=== PATIENT | female | born 1955 | race Caucasian/White ===

== ENCOUNTER 2019-06-11 13:59 | Emergency (ER) | payer OTHER ==
[~2019-06-11] VITALS: Ht 160 cm; Wt 136.1 kg
[2019-06-11] MEDS ORDERED: PRADAXA150 MG PO (14:14)
[2019-06-11] MEDS ORDERED: DILTIAZEM ER120 MG PO (14:14)
[2019-06-11] MEDS ORDERED: TOPROL XL25 MG PO (14:15)
[2019-06-11] MEDS ORDERED: LISINOPRIL2.5 MG PO (14:15)
[2019-06-11] MEDS ORDERED: LASIX 40 MG TAB40 MG PO (14:38)
[2019-06-11] MEDS ORDERED: K-DUR 20 MEQ T20 MEQ PO (14:38)
[2019-06-11] MEDS ORDERED: KEFLEX500 M2 PO (14:38)
[2019-06-11 15:03] VITALS: BP 177/107
== END 2019-06-11 15:05 | disposition home or self-care (01) ==
LOC: M.ERS 13:59
DX: L03.115 Cellulitis of right lower limb (principal); L03.116 Cellulitis of left lower limb; R60.0 Localized edema; I10 Essential (primary) hypertension; I48.91 Unspecified atrial fibrillation; Z96.653 Presence of artificial knee joint, bilateral; Z98.890 Other specified postprocedural states; Z88.5 Allergy status to narcotic agent

== ENCOUNTER 2019-06-22 16:01 | Inpatient (IN) | payer MEDICARE ==
[~2019-06-22] VITALS: Ht 160 cm; Wt 142.9 kg
--- NOTE | ~2019-06-22 | EKG ---
[place] [address] ELECTROCARDIOGRAM REPORT Name: RISSA PRINGLE Room: [facility]#: [id number] Admission: 06/22/19 Attend Phys: Discharge: Date of : 53 Date of Service: 06/22/191616 Report #: [id number] THIS REPORT FOR: cc: Lucero Marte Linda J. DO Epiphany, Epiphany MD ~ THIS REPORT FOR: //name// [facility] ED Test Date: 2019-06-22 Test Time: 16:17:17 Pat Name: RISSA PRINGLE Department: Room: Gender: F Plasma Processor: OPAL : 1955 Requested By: Aquiles Cobian Order Number: [id number] MD: Measurements Intervals [place] Rate: 99 P: AR: QRS: -21 QRSD: 102 T: 10 QT: 384 QTc: 493 Interpretive Statements Atrial fibrillation Borderline left axis deviation Low voltage, precordial leads Borderline prolonged QT interval Baseline wander in lead(s) V5 No previous ECG available for comparison [email or web address] By: 16 16 Epiphany Epiphany, /CARLOS MANUEL
--- NOTE | ~2019-06-22 | EKG ---
[place] [address] ELECTROCARDIOGRAM REPORT Name: RISSA PRINGLE Room: [address] ADM IN [facility].#: [id number] Admission: 06/22/19 Attend Phys: Mason Quiles Discharge: Date of : 53 Date of Service: 06/24/19 1501 Report #: [id number] THIS REPORT FOR: cc: Lucero Marte Linda J. DO Epiphany, Epiphany MD ~ THIS REPORT FOR: //name// [facility] Test Date: 2019-06-24 Test Time: 15:01:12 Pat Name: RISSA PRINGLE Department: Room: [address] Gender: F Warehouse Receiver: UNKNOWN : 1955 Requested By: Mason Zhang Order Number: [id number] Reading MD: Measurements Intervals [place] Rate: 146 P: AL: QRS: -14 QRSD: 84 T: 28 QT: 296 QTc: 462 Interpretive Statements Incomplete analysis due to missing data in precordial lead(s) Atrial fibrillation Probable anteroseptal infarct, old Missing lead(s): V5 Compared to ECG 06/22/2019 16:17:17 Myocardial infarct finding now present Poor R-wave progression no longer present [email or web address] By: 150 150 Epiphany MD Reyna /CARLOS MANUEL
[~2019-06-22 16:01] MED LIST: DILTIAZEM ER120 MG PO; K-DUR 20 MEQ T20 MEQ PO; KEFLEX500 M2 PO; LASIX 40 MG TAB40 MG PO; LISINOPRIL2.5 MG PO; PRADAXA150 MG PO; TOPROL XL25 MG PO
[2019-06-22 16:08] VITALS: BP 188/101
[2019-06-22 17:04] LABS: ABSOLUTE BASOPHILS 0.1 thou/uL (0.0-0.2); ABSOLUTE EOSINOPHILS 0.3 thou/uL (0.0-0.7); ABSOLUTE LYMPHOCYTES 2.1 thou/uL (0.8-5.3); ABSOLUTE MONOCYTES 0.9 thou/uL (0.0-1.2); ABSOLUTE NEUTROPHILS 9.2 thou/uL (1.6-8.1); EOSINOPHILS 2.2 %; HEMATOCRIT 42.5 % (37.0-47.0); LYMPHOCYTES 16.8 %; MCH 28.6 pg (26.0-34.0); MCHC 32.8 g/dL (28.0-37.0); MCV 87.1 fL (80.0-100.0); MONOCYTES 7.1 %; MPV 9.3 fl. (7.2-11.1); NUCLEATED RBCS 0 /100WBC; PLATELET COUNT* 245 thou/uL (150-400); POLYS 72.9 %; RBC 4.88 mil/uL (4.20-5.00); RDW-CV 15.4 % (10.5-14.5); WBC 12.6 thou/uL (4.0-11.0)
[2019-06-22 17:08] LABS: CALCIUM 8.9 mg/dL (8.5-10.1); CREATININE 0.9 mg/dL (0.6-1.3)
[2019-06-22 17:12] LABS: POTASSIUM 2.8 mmol/L (3.5-5.1)
[2019-06-22 17:18] LABS: APTT 36.3 Seconds (25.0-31.3); INR 1.2
[2019-06-22 17:19] LABS: ALBUMIN 3.4 g/dL (3.4-5.0); TOTAL BILIRUBIN 0.7 mg/dL (<0.1-1.0); TOTAL PROTEIN 7.7 g/dL (6.4-8.2)
--- NOTE | 2019-06-22 18:25 | NUR ---
PT WAS EXERTED AFTER UP TO BR WITH ASSIST X 1 WITH BSC, PT PLACED TO BED, O2 MONITOR 87% RA, PLACED PT ON NC/2L O2 AND SPO2 WENT UP TO 97%. DURING POTASSIUM 20MEQ IVPB INFUSION, PT C/O BURNING, NS 100ML BAG HUNG ALONG WITH POTASSIUM WITH PUMP SETTING AT 25ML/HR. DR. ENGLISH NOTIFIED AND RECEIVED NO NEW ORDERS AT THIS TIME. PT DENIES ANY NEEDS AT THIS TIME. CONTINUE TO MONITOR CLOSELY
[2019-06-22 19:13] LABS: CALCIUM 9.5 mg/dL (8.5-10.1); CREATININE 0.9 mg/dL (0.6-1.3); POTASSIUM 2.9 mmol/L (3.5-5.1)
[2019-06-22 20:49] VITALS: BP 166/79
--- NOTE | 2019-06-22 23:00 | NUR ---
RESULTS FROM CT RECEIVED, PHYSICIAN NOTIFIED. ORDERS RECEIVED.
[2019-06-23] VITALS (7 sets, daily range): BP systolic 107–193; BP diastolic 57–85
[2019-06-23 08:03] LABS: HEMATOCRIT 39.4 % (37.0-47.0); HEMOGLOBIN 12.9 gm/dL (12.0-15.0); MCH 28.3 pg (26.0-34.0); MCHC 32.7 g/dL (28.0-37.0); MCV 86.5 fL (80.0-100.0); MPV 8.9 fl. (7.2-11.1); RBC 4.56 mil/uL (4.20-5.00); RDW-CV 15.3 % (10.5-14.5); WBC 11.7 thou/uL (4.0-11.0)
[2019-06-23 08:23] LABS: CALCIUM 8.2 mg/dL (8.5-10.1); CREATININE 0.8 mg/dL (0.6-1.3)
[2019-06-23 08:25] LABS: POTASSIUM 2.9 mmol/L (3.5-5.1)
--- NOTE | 2019-06-23 11:04 | NUR ---
ASSUMED CARE OF PT AT 0730. PT RESTING IN BED, DAUGHTER AT BEDSIDE AND UPDATED ON CURRENT PLAN OF CARE. PT DENIES ANY PAIN OR SHORTNESS OF BREATH AT THIS TIME. PT TRACING AFIB ON THE WOODEN TANK ERECTOR. HEPARIN GTT CURRENTLY INFUSING AT 1,072 UNITS. REFER TO HEPARIN FLOW SHEET. CRITICAL POTASSIUM OF 2.9 NOTED FROM LAB- IV POTASSIUM INFUSING AT THIS TIME PER ELECTROLYTE PROTOCOL. PT ON 2L NC SAT 98%. PT UP WITH 1 ASSIST AND CANE TO BATHROOM. PT GOAL FOR TODAY IS PULM CONSULT IN PLACE, COMPLETE UPPER AND LOWER EXTREMITIES ULTRASOUNDS AND MONITOR PTT WITH HEPARIN GTT, REPLACE POTASSIUM PER ELECTROLYTE PROTOCOL. AM ASSESSMENT CHARTED. MEDICATIONS PER JUL. PT REPOSITIONS SELF. HOURLY ROUNDING OBSERVED. BED IN LOW POSITION. CALL LIGHT WITHIN REACH. WILL CONTINUE PLAN OF CARE.
--- NOTE | 2019-06-23 13:27 | 2DMMODE ---
[place] [address] 2 D/M-MODE ECHOCARDIOGRAM Name: RISSA PRINGLE Steven Room: [address] IN [facility].#: [id number] Admission: 06/22/19 Attend Phys: Mason Quiles Discharge: Date of : 53 Date of Service: 06/23/19 1326 Report #: [id number] THIS REPORT FOR: cc: Lucero Marte,Lucero Kirby,Trevon Douglass MD [facility] ~ THIS REPORT FOR: //name// APPROVED REPORT Study performed: 06/23/2019 10:55:57 EXAM: Comprehensive 2D, Doppler, and color-flow Echocardiogram Patient Location: In-Patient Room #: 222 Status: routine BSA: 2.34 HR: 95 bpm BP: 107/81 mmHg Rhythm: NSR Other Information Study Quality: Good Indications Congestive Heart Failure 2D Dimensions IVSd: 13.97 (7-11mm) LVOT Diam: 19.79 (18-24mm) LVDd: 47.81 mm PWd: 11.42 (7-11mm) Ascending Ao: 38.45 (22-36mm) LVDs: 32.97 (25-40mm) Aortic Root: 32.36 mm Volumes Left Atrial Volume (Systole) LA ESV Index: 44.60 mL/m2 Aortic Valve AoV Peak Ben.: 1.34 m/s AO Peak Gr.: 7.16 mmHg LVOT Max P.71 mmHg AO Mean Gr.: 4.32 mmHg LVOT Mean P.86 mmHg LVOT Max V: 0.96 m/s AO V2 VTI: 23.63 cm LVOT Mean V: 0.63 m/[place] [address] 2 D/M-MODE ECHOCARDIOGRAM Name: RISSA PRINGLE Room: [address] IN ..#: [id number] Admission: 06/22/19 Attend Phys: Mason Quiles Discharge: Date of : 53 Date of Service: 06/23/19 1326 Report #: [id number] DERRICK (VTI): 2.12 cm2 LVOT V1 VTI: 16.26 cm TDI Medial E' Ben.: 0.14 m/s Lateral E' Ben.: 0.14 m/s Pulmonary Valve PV Peak Ben.: 0.84 m/s PV Peak Gr.: 2.84 mmHg Tricuspid Valve RAP Estimate: 5.00 mmHg TR Peak Gr.: 22.49 mmHg RVSP: 27.00 mmHg PA Pressure: 27.00 mmHg Left Ventricle The left ventricle is normal size. There is normal LV segmental wall motion. Mild concentric left ventricular hypertrophy. Left ventricular systolic function is normal. The left ventricular ejection fraction is within the normal range. LVEF is 55-60%. This study is not technically sufficient to allow evaluation of the LV diastolic function due to atrial fibrillation. Right Ventricle Right ventricle is dilated. The right ventricular systolic function is normal. Atria Left atrium is moderately dilated. Right atrium is dilated. Aortic Valve The Aortic valve is sclerotic. No aortic regurgitation is present. There is no aortic valvular stenosis. Mitral Valve The mitral valve is normal in structure. Trace mitral regurgitation. No evidence of mitral valve stenosis. Tricuspid Valve The tricuspid valve is normal in structure. Mild tricuspid regurgitation. estimated pa pressure 35 mm Hg Pulmonic Valve Pulmonic valve is not well visualized. There is no pulmonic valvular regurgitation[place] [address] 2 D/M-MODE ECHOCARDIOGRAM Name: RISSA PRINGLE Room: [address]#: [id number] Admission: 06/22/19 Attend Phys: Maosn Quiles Discharge: Date of : 53 Date of Service: 06/23/19 1326 Report #: [id number] Aortic root is mildly dilated. IVC is normal in size and collapses >50% with inspiration. Pericardium There is no pericardial effusion. <Conclusion> Mild concentric left ventricular hypertrophy. LVEF is 55-60%. Left atrium is moderately dilated. The Aortic valve is sclerotic. <ELECTRONICALLY SIGNED> By: Trevon Nuno MD, FACC 06/23/19 1326 1326 1326 Trevon Nuno MD, FACC /INF
--- NOTE | 2019-06-23 14:21 | NUR ---
CM ASSESSMENT: PT LIVES AT HOME ALONE. PT IS INDEPENDENT WITH ADLS AND DOES NOT NEED ANY DME OR HH
--- NOTE | 2019-06-23 17:39 | NUR ---
NO ACUTE CHANGES THROUGHOUT SHIFT. REFER TO CHARTING. HEPARIN CURRENTLY INFUSING AT 787 UNITS/HR, REFER TO HEPARIN FLOW SHEET. RE DRAW PTT FOR 2315. 2ND BAG OF IV POTASSIUM INFUSING AT THIS TIME PER ELECTROLYTE PROTOCOL. PT HAD UPPER AND LOWER EXSTREMITIES ULTRASOUND TODAY-AWAITING RESULTS AT THIS TIME. PT HAD ECHO TODAY-REFER TO RESULTS. CONTINUES TO TRACE AFIB ON THE DEVELOPMENT ENGINEER. RATE CONTROLLED. ON 2L NC PRN FOR COMFORT-SAT UPPER 90'S. PT UP WITH 1 ASSIST AND CANE TO BATHROOM. WEAKNESS NOTED. DAUGHTER AT BEDSIDE THROUGHOUT SHIFT AND UPDATED ON CURRENT PLAN OF CARE. MEDICATIONS PER JUL .PT REPOSITIONS SELF. HOURLY ROUNDING OBSERVED. BED IN LOW POSITION. CALL LIGHT WITHIN REACH. WILL CONTINUE PLAN OF CARE.
[2019-06-24 00:31] VITALS: BP 127/68
[2019-06-24 05:03] VITALS: BP 140/76
--- NOTE | 2019-06-24 07:10 | NUR ---
CHANGE IN SHIFT, BEDSIDE REPORT GIVEN PATIENT SEEN AT BEDSIDE, IN BED RESTING ASSUMED PATIENT CARE
[2019-06-24 07:24] LABS: HEMATOCRIT 38.4 % (37.0-47.0); HEMOGLOBIN 12.6 gm/dL (12.0-15.0); MCH 28.5 pg (26.0-34.0); MCHC 32.7 g/dL (28.0-37.0); MCV 87.3 fL (80.0-100.0); MPV 9.6 fl. (7.2-11.1); RBC 4.4 mil/uL (4.20-5.00); RDW-CV 15.4 % (10.5-14.5); WBC 10.9 thou/uL (4.0-11.0)
[2019-06-24 07:35] LABS: ALBUMIN 2.9 g/dL (3.4-5.0); CREATININE 0.8 mg/dL (0.6-1.3); MAGNESIUM 1.7 mg/dL (1.8-2.4); POTASSIUM 3.5 mmol/L (3.5-5.1); TOTAL BILIRUBIN 0.8 mg/dL (<0.1-1.0); TOTAL PROTEIN 6.6 g/dL (6.4-8.2)
[2019-06-24 08:00] VITALS: BP 119/74
--- NOTE | 2019-06-24 11:00 | NUR ---
MET WITH PT AND DTR, TALKED WITH HER ABOUT HOW TO MANAGE LONG CAR RIDES IN THE FUTURE WITH FREQUENT REST PERIODS. PT DOESN'T HAVE DRUG COVERAGE, JUST GOT HER MEDICARE THIS MONTH AFTER HER BIRTHDAY. ENCOURAGED HER TO CHECK INTO GETTING MED PART D. SHE STATES SHE WAS TO BE ON PRADAXA AND THAT SHE FOLLOWS WITH DR JOVEL. SOMEONE IN THE OFFICE GAVE HER SAMPLES AND ASSISTED WITH GETTING HER ENROLLED IN THE ASSISTANCE PROGRAM. PT STATES SHE HAS A SUPPLY OF PRADAXA AT HOME. ALSO ADMITS THAT SHE MISSED DOSES AND WASN'T COMPLIANT, BUT UNDERSTANDS NEED FOR THAT NOW. UNSURE OF WHAT AC THEY WILL PLACE PT ON, CM TO FOLLOW AND ASSIST
[2019-06-24 11:44] VITALS: BP 140/53
[2019-06-24 16:00] VITALS: BP 146/69
[2019-06-24 20:00] VITALS: BP 128/72
[2019-06-24 23:09] LABS: GLYCOHEMOGLOBIN (HGB A1C) 5.9 % (4.8-5.6)
[2019-06-25 00:37] VITALS: BP 129/72; BP 135/91
[2019-06-25 04:00] VITALS: BP 122/63
[2019-06-25 05:15] LABS: CALCIUM 8.1 mg/dL (8.5-10.1); CREATININE 0.9 mg/dL (0.6-1.3); POTASSIUM 3.9 mmol/L (3.5-5.1)
[2019-06-25 08:00] VITALS: BP 121/73
--- NOTE | 2019-06-25 08:05 | NUR ---
ASSUMED PATIENT CARE AT 1900. ASSESSMENT COMPLETED CHARTED. PATIENT IS AFIB ON THE MONITOR. HOURLY ROUNDING IN PLACE FOR PATIENT SAFETY. CLWR.
[2019-06-25 13:24] VITALS: BP 131/55
--- NOTE | 2019-06-25 14:04 | CON ---
[address] [address] CONSULTATION Name: RISSA PRINGLE Room: [address] IN [facility].#: [id number] Admission: 06/22/19 Attend Phys: Mason Zhang, Discharge: Date of : 53 Report #: [id number] THIS REPORT FOR: //name// cc: Lucero Marte Linda J. DO THIS REPORT FOR: //name// CC: Lucero Casey DATE OF SERVICE: 06/24/2019 CARDIOLOGY CONSULTATION HISTORY OF PRESENT ILLNESS: The patient is a 64-year-old single white female, who I was asked to see in the hospital today after she was noted to be in atrial fibrillation. The patient states she has had permanent atrial fibrillation for about 6 years. She previously was followed by Dr. Wilkerson in my office. She was never cardioverted. She has been anticoagulated with Pradaxa. She is not very active because of her large size. She is 5 feet 4 inches and weighs 316 pounds. Recently, she noticed increasing swelling of her feet. She went to see her doctor 2 days ago and her legs were weeping, so she was admitted to [facility] for further evaluation and treatment. She has noticed some shortness of breath, but no orthopnea or fever. She denies chest pain. She notes occasional irregular heartbeat, but no syncope. PAST MEDICAL HISTORY: She has had knee surgery, foot surgery and hand surgery. She has a history of hypertension. No history of diabetes. MEDICATIONS: Include diltiazem, Pradaxa, lisinopril, metoprolol. ALLERGIES: SHE HAS AN ALLERGY TO MORPHINE. FAMILY HISTORY: Negative for heart disease. SOCIAL HISTORY: She is , lives by herself in [place]. No smoking or alcohol abuse. REVIEW OF SYSTEMS: She does snore at night. No history of asthma, peptic ulcer disease, GI bleeding, liver disease or kidney disease. She has had a skin cancer removed in the past. No psychiatric illness. PHYSICAL EXAMINATION: GENERAL: Revealed obese, middle-aged female lying in bed. She appeared in no acute distress. VITAL SIGNS: She had a blood pressure of 140/80; pulse was 110; respirations, nonlabored; she was afebrile. HEENT: She was anicteric. Conjunctivae pink. Mucous membranes appear dry. NECK: Neck veins were difficult to assess due to obesity. CHEST: Clear to auscultation. CARDIOVASCULAR: Irregular tachycardia. ABDOMEN: Obese, nontender. EXTREMITIES: Had pitting edema up to the mid tibial area. Dorsalis pedis pulse could not be palpated. SKIN: Cool and dry. DIAGNOSTIC DATA: ECG shows atrial fibrillation with nonspecific ST and T-wave changes, septal Q-waves were noted. The patient had an echocardiogram done 2 days ago here at [facility] that showed normal left ventricular function with left ventricular hypertrophy, left atrial enlargement, aortic sclerosis. Her x-rays on admission include a portable chest x-ray that showed normal heart size, elevated right hemidiaphragm, no pulmonary edema. CT scan of the chest using a PE protocol showed bilateral pulmonary emboli. Venous duplex scan showed no evidence of DVT. LABORATORY WORK: Sodium 144, potassium 3.5, creatinine 0.8. Liver function studies were normal. Troponin 0.06. BNP 1059. TSH 4.2. White blood cell count 10.9, hematocrit 38.4. IMPRESSION AND RECOMMENDATIONS: 1. Bilateral pulmonary emboli. It would be unusual to have pulmonary emboli when chronically anticoagulated with Pradaxa. I am not sure if the patient is totally compliant. 2. Permanent atrial fibrillation. Rate controlled with calcium marti and beta marti. We would continue anticoagulation. 3. Hypertension. The patient is on calcium marti, AMITA inhibitor and beta marti. 4. Morbid obesity. 5. Sleep apnea. I would consider a sleep study. 6. Cellulitis. 7. Degenerative joint disease. <ELECTRONICALLY SIGNED> By: Trevon Nuno MD, FACC 06/25/19 1404 1517 [id number] Nuno MD, FACC /nt
--- NOTE | 2019-06-25 15:18 | NUR ---
late entry completed 06/24 @1500 RE:Heart failure medication education I provided patient with heart failure medication education handout. We discussed lisinopril and metoprolol. All questions were answered. Pharmacy is available for any future questions. Thank you.
[2019-06-25 15:58] VITALS: BP 121/91
--- NOTE | 2019-06-25 18:43 | NUR ---
ASSUMED PT CARE AT 0700, PT A&O X4, VSS, LS DIMINISHED THROUGHOUT, RA, ORGANIC LAB WORKER TRACING AFIB, FULL ASSESSMENT CHARTED. PT UP WITH ASSIST X1 AND CANE, CONT ON STRICT I/O'S, HOURLY ROUNDING COMPLETED.
[2019-06-25 20:00] VITALS: BP 131/66
[2019-06-26] VITALS: BP 129/69
[2019-06-26 04:00] VITALS: BP 126/76
--- NOTE | 2019-06-26 07:02 | NUR ---
ASSUMED PATIENT CARE AT 1900. ASSESSMENT COMPLETED CHARTED. PATIENT IS AFIB ON THE MONITOR. HOURLY ROUNDING IN PLACE FOR PATIENT SAFETY. CLWR.
--- NOTE | 2019-06-26 07:10 | NUR ---
CHANGE OF SHIFT BEDSIDE REPORT GIVEN PATIENT SEEN AT BEDSIDE, IN BED RESTING ASSUMED PATIENT CARE
[2019-06-26 08:00] VITALS: BP 135/61
[2019-06-26 09:37] LABS: CALCIUM 8.9 mg/dL (8.5-10.1); POTASSIUM 4.6 mmol/L (3.5-5.1)
--- NOTE | 2019-06-26 10:15 | NUR ---
CONTINUE TO FOLLOW, PT HAS SAMPLES OF XARELTO FOR 1ST 21 DAYS AND HAS F/U WITH CARDIOLOGY THIS MONTH WHERE SHE PLANS TO GET MORE SAMPLE. DISCUSSED AGAIN F/U WITH MEDICARE AND SECURING MED D FOR SCRIPT COVERAGE. PT VOICED UNDERSTANDING. DISCUSSED POSSIBLE DC NEEDS, PT DENIES ANY, STATES SHE IS NOT HOMEBOUND AND THEREFORE WOULDN'T QUALIFY FOR HH. PLANS TO RETURN HOME WITH FAMILY SUPPORT
[2019-06-26 15:54] VITALS: BP 99/62
[2019-06-26 15:59] VITALS: BP 106/70
[2019-06-26] MEDS ORDERED: POTASSIUM20 PO (16:49)
[2019-06-26] MEDS ORDERED: XARELTO15 MG PO (16:50)
[2019-06-26] MEDS ORDERED: LASIX 40 MG TAB40 MG PO (16:50)
[2019-06-26] MEDS ORDERED: XARELTO20 MG PO (17:13)
--- NOTE | 2019-06-26 17:55 | NUR ---
DISCHARGE TO HOME ALL DISCHARGE INSTRUCTIONS GIVEN PERSONAL BELONGINGS RETURNED IV AND HEART MONITOR REMOVGED PATIENT ASSISTED OUT VIA WC TO [facility]
== END 2019-06-26 17:00 | disposition home or self-care (01) | DRG 291 ==
LOC: M.ERS 16:01 → M.2W 17:36 → M.TBA-ER 17:36 → M.2W 20:26
PROVIDERS: Emergency Medicine Emergency Medical Services; Internal Medicine; Internal Medicine Cardiovascular Disease; ADMIT Family Medicine
DX: I11.0 Hypertensive heart disease with heart failure (principal); I50.31 Acute diastolic (congestive) heart failure; I26.94 Multiple subsegmental thrombotic pulmonary emboli without acute cor pulmonale; J96.01 Acute respiratory failure with hypoxia; Z68.43 Body mass index [BMI] 50.0-59.9, adult; I48.21 Permanent atrial fibrillation; L03.90 Cellulitis, unspecified; E66.01 Morbid (severe) obesity due to excess calories; Z96.653 Presence of artificial knee joint, bilateral; E87.6 Hypokalemia; G47.30 Sleep apnea, unspecified; M19.90 Unspecified osteoarthritis, unspecified site; I16.0 Hypertensive urgency; I87.8 Other specified disorders of veins; Z88.5 Allergy status to narcotic agent; Z79.899 Other long term (current) drug therapy; Z79.01 Long term (current) use of anticoagulants

== ENCOUNTER → 2020-02-11 | Outpatient (CLI) | payer MEDICARE, MEDICAID ==
[~2020-02-11] MED LIST changes: +POTASSIUM20 PO; +XARELTO15 MG PO; +XARELTO20 MG PO
[2020-02-11 12:36] LABS: ABSOLUTE BASOPHILS 0.1 thou/uL (0.0-0.2); ABSOLUTE EOSINOPHILS 0.3 thou/uL (0.0-0.7); ABSOLUTE LYMPHOCYTES 2.2 thou/uL (0.8-5.3); ABSOLUTE MONOCYTES 0.6 thou/uL (0.0-1.2); ABSOLUTE NEUTROPHILS 9.1 thou/uL (1.6-8.1); BASOPHILS 0.8 %; EOSINOPHILS 2.6 %; HEMATOCRIT 40.2 % (37.0-47.0); HEMOGLOBIN 13.3 gm/dL (12.0-15.0); LYMPHOCYTES 18.1 %; MCH 28.3 pg (26.0-34.0); MCV 85.7 fL (80.0-100.0); MONOCYTES 4.9 %; MPV 8.1 fl. (7.2-11.1); NUCLEATED RBCS 0 /100WBC; PLATELET COUNT* 325 thou/uL (150-400); POLYS 73.6 %; RDW-CV 14.8 % (10.5-14.5); WBC 12.3 thou/uL (4.0-11.0)
[2020-02-11 12:47] LABS: URINE BILIRUBIN NEGATIVE (Negative); URINE BLOOD 3+ (Negative); URINE CLARITY CLEAR; URINE COLOR YELLOW; URINE GLUCOSE-RANDOM NEGATIVE (Negative); URINE KETONES NEGATIVE (Negative); URINE LEUKOCYTES NEGATIVE (Negative); URINE NITRITE NEGATIVE (Negative); URINE PROTEIN 3+ (Negative); URINE SPECIFIC GRAVITY >= 1.030 (1.005-1.030); URINE UROBILINOGEN 0.2 E.U./dl (0.2-1.0)
[2020-02-11 12:48] LABS: BACTERIA 1-9 Few /HPF (None Seen); CALCIUM OXALATE 4-10 Moderate /LPF (None Seen); CASTS None Seen /LPF (None Seen); MUCUS None Seen strn/LPF (None Seen); SQUAMOUS 0-3 Few /LPF (0-3); URINE RBC >20 Many /HPF (0-2); URINE WBC 0-5 Rare /HPF (0-5)
== END ==
LOC: M.LAB 02-10 15:58
PROVIDERS: ATTEND Internal Medicine Cardiovascular Disease
DX: R31.9 Hematuria, unspecified (principal)